=== PATIENT | female | born 1965 | race African-American/Black ===

== ENCOUNTER 2016-10-08 18:19 | Emergency (ER) | payer OTHER ==
[2016-10-08 17:20] LABS: URINE SOURCE CLEAN CATCH
[2016-10-08 17:52] LABS: URINE APPEARANCE CLOUDY; URINE BILIRUBIN NEG (NEG); URINE BLOOD 3+ (NEG); URINE COLOR YELLOW; URINE GLUCOSE NEG (NEG); URINE KETONE NEG (NEG); URINE LEUKOCYTE ESTERASE 2+ (NEG); URINE NITRATE NEG (NEG); URINE PH 5.5 (5-8); URINE PROTEIN 2+ (NEG); URINE SPECIFIC GRAVITY 1.026 (1.003-1.035); URINE UROBILINOGEN 0.2 MG/DL (NEG)
[2016-10-08 17:55] LABS: CULTURE INDICATED? YES; URBCS1 AUWI INNUM /[HPF] (0-2); URINE BACTERIA AUWI 2+ (NEGATIVE); URINE SQUAMOUS EPITHELIAL CELL MOD /[HPF]; UWBCS1 AUWI 100-200 (0-5)
[~2016-10-08 18:19] MED LIST: ACETAMINOPHEN-1 EACH PO; ASPIRIN EC81 M1 PO; BACTRIM DS TABL1 TA1 PO; HYDROCODON-ACE1 EAC7 PO; KEFLEX500 MG PO; NAPROXEN PO; PERCOCET 7.5-31 EACH PO
[2016-10-10 23:03] LABS: CHLAMYDIA TRACH Not Detected (Not Detected); N GONOR Not Detected (Not Detected)
[2016-12-06] MEDS ORDERED: IRON PO (14:20)
[2017-01-30] MEDS ORDERED: FERRO-TIME325 MG PO (13:10)
[2017-01-30] MEDS ORDERED: MOTRIN600 M1 PO (13:11)
[2017-01-30] MEDS ORDERED: HYDROCODON-ACE1 EAC7 PO (13:12)
== END 2016-10-08 19:24 | disposition home or self-care (01) ==
LOC: CED 18:19
PROVIDERS: Emergency Medicine; Nurse Practitioner
DX: A59.03 Trichomonal cystitis and urethritis (principal); Z98.51 Tubal ligation status; Z79.82 Long term (current) use of aspirin; Z79.899 Other long term (current) drug therapy
CPT/HCPCS: 81003; 87086; 87088; 87186; 87491; 87591; 87808; 87905; 96372; 99284; J0696

== ENCOUNTER 2016-11-01 14:42 | Emergency (ER) | payer OTHER ==
--- NOTE | ~2016-11-01 | CR172 ---
[facility] A Service of [facility] & [facility] RADIOLOGY TEXT RESULTS PATIENT: GORAN CUNNINGHAM LOCATION: [facility] : 69 UNIT #: [id number] AGE: [address]: Uyen Dailey SEX: F ORDER DR: [id number] [facility] [address] [place], [place] [address] [id number] E MR#: [id number] Acc #: [id number] NAME: GORAN CUNNINGHAM : 1965 SEX: F STUDY DATE/TIME: 11/01/2016 15:33 UNIT: [facility] ROOM: STUDY DESCRIPTION: CR Knee 3 Views Lt Attending Physician: Uyen Dailey P.A.-C. Ordering Physician: Uyen Dailey P.A.-C. [facility] MEDICAL IMAGING REPORT This report is preliminary unless electronic signature is present EXAM Left knee series. DATE OF EXAM 11/01/2016 HISTORY Trauma medial lateral knee pain, pain x1-1/2 week. Knee injury. Hit knee on table 2-1/2 weeks. FINDINGS AP, lateral, sunrise views left knee are presented. No traumatic fracture or malalignment. Joint spaces are intact. No soft tissue defect, subcutaneous air or radiodense foreign body. No definite joint effusion. The patient has ongoing symptoms, knee could be further evaluated with elective MRI if patient is a candidate. Dictated by... Gary Farias M.D. THIS IS AN ELECTRONICALLY VERIFIED REPORT Gary Farias M.D. at 11/02/2016 11:32 PM PRANAV/kassandra TD: 11/01/2016 23:01 JOB #: [id number] MEDICAL IMAGING REPORT Page 1 of 1 COPY
[2016-12-06] MEDS ORDERED: IRON PO (14:20)
[2017-01-30] MEDS ORDERED: FERRO-TIME325 MG PO (13:10)
[2017-01-30] MEDS ORDERED: MOTRIN600 M1 PO (13:11)
[2017-01-30] MEDS ORDERED: HYDROCODON-ACE1 EAC7 PO (13:12)
== END 2016-11-01 16:30 | disposition home or self-care (01) ==
LOC: CFTX 14:42 → CED 14:42 → CFTX 15:11
DX: S83.92XA Sprain of unspecified site of left knee, initial encounter (principal); D64.9 Anemia, unspecified; W22.8XXA Striking against or struck by other objects, initial encounter; Y92.009 Unspecified place in unspecified non-institutional (private) residence as the place of occurrence of the external cause
CPT/HCPCS: 29530; 73562; 99283

== ENCOUNTER 2016-11-07 12:34 | Emergency (ER) | payer OTHER ==
--- NOTE | ~2016-11-07 | CT2 ---
[facility] A Service of [facility] RADIOLOGY TEXT RESULTS PATIENT: GORAN CUNNINGHAM LOCATION: [facility] : [birth year] UNIT #: [id number] AGE: [address]: Adriano Worley MD SEX: F ORDER DR: [id number] [facility] [address] [place], [place] [address] [id number] E MR#: [id number] Acc #: [id number] NAME: GORAN CUNNINGHAM : 1965 SEX: F STUDY DATE/TIME: 11/07/2016 16:37 UNIT: [facility] ROOM: STUDY DESCRIPTION: CT Abd and Pelv W Cont Attending Physician: Balwinder Worley M.D. Referring Physician: Deshawn Alberto M.D. Ordering Physician: Alvarez Gusman M.D. [facility] MED[facility] IMAGING REPORT This report is preliminary unless electronic signature is present EXAM CT of abdomen and pelvis with contrast. INDICATIONS Nausea, vomiting, generalized abdominal and rectal pain for the past [address] of the abdomen and pelvis. COMPARISON None. TECHNIQUE This CT exam was performed with one or more of the following radiation dose reduction techniques: automatic exposure control, adjustment of mA and/or kV according to patient size, and iterative reconstruction. FINDINGS ABDOMEN WITH CONTRAST: 6 mm subpleural nodule left lower lobe. No liver lesion. There are a few small low-attenuation lesions in the spleen measuring up to 10 mm. The kidneys, adrenal glands, pancreas and gallbladder are unremarkable. Bowel loops are nondilated. Appendix is normal. 2.2 cm fat-containing umbilical hernia. PELVIS WITH CONTRAST: Uterus is markedly enlarged with scattered fibroids. A fibroid in the anterior lower uterine segment measures approximately 3.6 cm. There is a large exophytic mass in the left lower abdomen measuring up to 9.4 cm. This may be exophytic from the uterus. There is no pelvic fluid. No aggressive appearing bone lesion. IMPRESSION No acute findings. [facility] A Service of [facility] RADIOLOGY TEXT RESULTS PATIENT: GORAN CUNNINGHAM [id number] : [birth year] UNIT #: [id number] AGE: [address]: Adriano Worley MD SEX: F ORDER DR: Enlarged uterus with at least some fibroids. This all could be related to uterine fibroids or could be a combination of fibroids and uterine adenomyosis. There is also a large 9.4 cm mass in the left lower abdomen that may be exophytic from the uterus, representing a large exophytic fibroid. It is difficult to exclude an adnexal mass. Consider evaluation of pelvic structures with ultrasound. This could be performed on a nonemergent basis. There are a few low-attenuation lesions in the spleen that are nonspecific. Considerations include cysts, hemangiomas, granulomatous disease. Possibility of metastatic disease is not excluded, but is considered less likely, given there are no other findings to suggest that on the study. Dictated by... Balwinder Arcos M.D. THIS IS AN ELECTRONICALLY VERIFIED REPORT Balwinder Arcos M.D. at 11/08/2016 10:38 AM CY/kassandra TD: 11/07/2016 18:22 JOB #: [id number] MEDICAL IMAGING REPORT Page 1 of 1 COPY
[2016-11-07 14:37] LABS: URINE SOURCE CLEAN CATCH
[2016-11-07 14:50] LABS: URINE APPEARANCE CLEAR; URINE BILIRUBIN NEG (NEG); URINE BLOOD TRACE (NEG); URINE COLOR YELLOW; URINE GLUCOSE NEG (NEG); URINE KETONE NEG (NEG); URINE LEUKOCYTE ESTERASE NEG (NEG); URINE NITRATE NEG (NEG); URINE PROTEIN NEG (NEG); URINE SPECIFIC GRAVITY 1.025 (1.003-1.035)
[2016-11-07 14:53] LABS: CULTURE INDICATED? NO; URBCS1 AUWI 0-2 /[HPF] (0-2); URINE BACTERIA AUWI NEG (NEGATIVE); URINE SQUAMOUS EPITHELIAL CELL OCC /[HPF]
[2016-11-07 14:57] LABS: BASOPHIL% 0.7 % (0-2.5); DIFF IND YES; EOSINOPHIL# 0.1 X10e3 (0-0.7); HEMOGLOBIN 9.4 gm/dL (12.0-16.0); LYMPHOCYTE# 1.8 X10e3 (1.0-3.5); LYMPHOCYTE% 26.6 % (17.0-45.0); MEAN CELL VOLUME 73.4 FL (83-96); MEAN CORPUSCULAR HEMOGLOBIN 22.4 PG (28-34); MEAN CORPUSCULAR HGB CONC 30.5 g/dL (30-36); MEAN PLATELET VOLUME 8.6 FL (6.5-11.5); MONOCYTE# 0.5 X10e3 (0-1.0); MONOCYTE% 6.8 % (3.0-12.0); NEUTROPHIL# 4.3 X10e3 (1.5-7.1); NEUTROPHIL% 63.9 % (40-75); PLATELET COUNT 307 X10e3 (140-420); RED BLOOD COUNT 4.22 X10e (3.90-5.30); RED CELL DISTRIBUTION WIDTH 25.7 % (11.0-15.5); WHITE BLOOD COUNT 6.8 X10e3 (4.0-10.5)
[2016-11-07 15:15] LABS: ALKALINE PHOSPHATASE 59 U/L (32-92); ALT (SGPT) 18 U/L (10-40); AST (SGOT) 19 U/L (10-42); BILIRUBIN,TOTAL 0.4 mg/dL (0.2-2.0); BLOOD UREA NITROGEN 11 mg/dL (9-23); BUN/CREATININE RATIO 15.71; CALCIUM SERUM 9.3 mg/dL (8.4-10.2); CARBON DIOXIDE 22 mmol/L (22-31); CHLORIDE 106 mmol/L (100-111); CREATININE SERUM 0.7 mg/dL (0.6-1.4); GLOM FILT RATE Estimated 117.9 mL/min (>60); GLUCOSE FASTING 97 mg/dL (70-110); LIPASE 30 U/L (22-51); POTASSIUM 3.6 mmol/L (3.5-5.1); PROTEIN TOTAL SERUM 7.2 g/dL (6.0-8.3); SODIUM 136 mmol/L (135-145)
[2016-11-07 15:17] LABS: BILIRUBIN, DIRECT <0.1 mg/dL (0.0-0.2); BILIRUBIN,INDIRECT 0.3 mg/dL (0.0-0.9)
[2016-11-07 15:20] LABS: ANISOCYTOSIS MOD; HYPOCHROMIA MOD; MICROCYTOSIS SL; PLATELET ESTIMATE NORMAL (NORMAL)
[2016-12-06] MEDS ORDERED: IRON PO (14:20)
[2017-01-30] MEDS ORDERED: FERRO-TIME325 MG PO (13:10)
[2017-01-30] MEDS ORDERED: MOTRIN600 M1 PO (13:11)
[2017-01-30] MEDS ORDERED: HYDROCODON-ACE1 EAC7 PO (13:12)
== END 2016-11-07 17:51 | disposition home or self-care (01) ==
LOC: CFTX 12:34 → CED 12:34
DX: D25.9 Leiomyoma of uterus, unspecified (principal); K64.9 Unspecified hemorrhoids
CPT/HCPCS: 36415; 74177; 80048; 80076; 81003; 83690; 84703; 85025; 99284; Q9967

== ENCOUNTER → 2016-12-06 | Day surgery (SDC) | payer OTHER ==
[~2016-12-06] MED LIST changes: +FERRO-TIME325 MG PO; +IRON PO; +MOTRIN600 M1 PO
--- NOTE | ~2016-12-06 | OR ---
Unit #: [id number] #: [id number] Patient: GORAN CUNNINGHAM [id number] [address] [place], [place] [address] [id number] O MR#: [id number] NAME: GORAN CUNNINGHAM ROOM: Date of Procedure: 12/06/2016 Admission Date: 12/06/2016 Surgeon: Ruiz Snow Jr., M.D. : 1965 Attending Physician: Ruiz Snow Jr., M.D. Primary Care Physician: [facility] OPERATIVE REPORT INDICATIONS FOR PROCEDURE The patient is a 51-year-old black female, who recently presented to the office complaining of some anemia with evidence of some intermittent rectal bleeding. She is brought in this time for upper and lower endoscopy to determine the source of her GI bleed. PREOPERATIVE DIAGNOSES Gastrointestinal bleeding with anemia. POSTOPERATIVE DIAGNOSES Gastrointestinal bleeding with anemia. On upper endoscopy, she was noted to have evidence of 1+ distal esophagitis. No evidence of any stenosis. Mild atrophic gastritis with a small healing antral ulcer by appearance and she was also noted to have mild duodenitis. On colonoscopy to the distal ileum, she was noted to have evidence of bleeding internal hemorrhoids. These were actively bleeding. ANESTHESIA MAC anesthesia. PROCEDURES PERFORMED Flexible fiberoptic esophagogastroduodenoscopy with antral biopsy for Helicobacter pylori and flexible colonoscopy to the distal ileum. DESCRIPTION OF PROCEDURE The patient was positioned in Levy position with left side down. After being given MAC anesthesia, the Olympus XQ scope was passed through the proximal esophagus. The entire esophagus was examined. There was no evidence of any esophagitis except in the area of the GE junction, where there was 2 or 3 small ulcerations compatible with 1+ ulcerative distal esophagitis. No evidence of any stenosis. The scope was advanced through the GE junction, the cardia, and down to the fundic and antral region of the stomach, retroflexed back up to the area of the cardia, there was no obvious hiatal hernia present. The stomach distended well without evidence of rigidity. No evidence of any gastric ulcer disease except in the area of the antrum, there was a tiny 2 mm erosion versus ulcer that was healing. There was also some mild atrophic gastritis. The scope was advanced through the pylorus into the duodenal bulb, where there was some mild duodenitis. The scope was then advanced down to the second portion of the duodenum, which appeared normal. The scope was brought back up the area of the antrum where a biopsy was taken for Helicobacter pylori without significant bleeding. The scope was then slowly removed. The Unit #: [id number] #: [id number] Patient: GORAN CUNNINGHAM patient was repositioned for colonoscopy. Digital rectal examination was performed, which revealed no palpable mass or tenderness. No stool present, but there was some bright red blood. The Olympus colonoscope was advanced through the anal canal up the rectum and retroflexed down to the area of the anorectal region. The patient was noted to have dilated bleeding internal hemorrhoids. These were not massively bleeding though. The scope was then straightened and advanced up the rectosigmoid, in the sigmoid and descending colon areas, around the splenic flexure and the transverse colon, around hepatic flexure and ascending colon, down in the area of the cecum. The light from tip of the scope could be seen transilluminating through right lower quadrant abdominal wall area. The scope was advanced up the distal ileum approximately 10 to 12 inches. There was no evidence of any ileitis or inflammatory bowel disease. There was a small intramural lipoma in the area of the ascending colon felt to be of no major significance. The scope was slowly removed. The patient tolerated the procedure well and discharged in satisfactory condition. Dictated by... Ruiz Snow Jr., MJuliet ROWE/catrina TD: 12/07/2016 05:55 JOB #: [id number] OPERATIVE REPORT Page 1 of 1 X Ruiz Snow MD X PROCEDURE OPERATIVE NOTE
== END | disposition home or self-care (01) ==
LOC: COPS 11:49
DX: K29.41 Chronic atrophic gastritis with bleeding (principal); D50.0 Iron deficiency anemia secondary to blood loss (chronic); K29.81 Duodenitis with bleeding; K22.11 Ulcer of esophagus with bleeding; D17.5 Benign lipomatous neoplasm of intra-abdominal organs; K64.8 Other hemorrhoids; K21.9 Gastro-esophageal reflux disease without esophagitis; E66.9 Obesity, unspecified; Z68.29 Body mass index [BMI] 29.0-29.9, adult; Z98.51 Tubal ligation status; Z98.890 Other specified postprocedural states
CPT/HCPCS: 84703; 87077; J2250

== ENCOUNTER → 2017-01-02 | Outpatient (CLI) | payer OTHER ==
--- NOTE | ~2017-01-02 | MR103 ---
[facility] A Service of [facility] & [facility] RADIOLOGY TEXT RESULTS PATIENT: GORAN CUNNINGHAM LOCATION: [facility] : 69 UNIT #: [id number] AGE: [address]: Shashi Bai MD SEX: F ORDER DR: [id number] [facility] [address] [place], [place] [address] [id number] O MR#: [id number] Acc #: [id number] NAME: GORAN CUNNINGHAM. : 1965 SEX: F STUDY DATE/TIME: 01/02/2017 16:56 UNIT: [facility] ROOM: STUDY DESCRIPTION: MR Knee Wo Contrast Lt Attending Physician: Shashi aBi M.D. Referring Physician: Jaylon Lr M.D. Ordering Physician: Shashi Bai M.D. Primary Care Physician: Jaylon Lr M.D. MRI CENTER REPORT This report is preliminary unless electronic signature is present. EXAM MRI left knee, 01/02/2017. COMPARISON Left knee radiographs, 11/01/2016. HISTORY Order states knee medial meniscus tear/pain. History sheet states left knee pain. Hit against something 1 1/2 months ago. Anteromedial pain. No previous left knee surgery. Opposite right knee ACL surgery.. FINDINGS There is a gqzx-xx-zkjlzjao effusion without a popliteal cyst. Patellofemoral alignment is normal. 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 The femoral trochlea demonstrates a small focus of moderate-grade chondromalacia of the inferior aspect of the medial femoral trochlear facet. The quadriceps and patellar tendons are intact. Cruciate ligaments are normal. The lateral meniscus, lateral collateral ligament complex, and popliteus tendon are normal. Articular cartilage of the lateral compartment is normal. There is deep, likely full-thickness radial tear in the far posterior horn of the medial meniscus near the root insertion. The root is at least partially attached. There is secondary medial meniscal subluxation. The MCL is intact. There is no displaced meniscal fragment. There is medial compartment arthrosis with joint space narrowing and moderate and high-grade weightbearing chondromalacia predominating in the STS. [facility] A Service of [facility] & [facility] RADIOLOGY TEXT RESULTS PATIENT: GORAN CUNNINGHAM LOCATION: [facility] : [birth year] UNIT #: [id number] AGE: [address]: Shashi Bai MD SEX: F ORDER DR: medial femur. There is minor marrow edema of the periphery of the subarticular medial tibia at the level of the mid body of the medial meniscus. There is no marrow lesion, fracture, or sizeable loose body. IMPRESSION 1. The predominant abnormalities involve the medial compartment where there is ttbf-qq-lumoornz arthrosis and a deep essentially full-thickness radial tear in the posterior horn of the medial meniscus near the root without complete root detachment. Mild reactive MCL bursitis. 2. Joint effusion. 3. Patellofemoral compartment limited chondromalacia detailed above. 4. Cruciate ligaments and lateral compartment are normal. 5. There is no fracture or loose body. Dictated by... Tiarra Royal M.D. THIS IS AN ELECTRONICALLY VERIFIED REPORT Tiarra Royal M.D. at 01/04/2017 8:53 AM COLEMAN/shailesh TD: 01/03/2017 14:34 JOB #: [id number] MRI CENTER REPORT Page 1 of 1 COPY
== END | disposition home or self-care (01) ==
LOC: CMRI 16:32
DX: M25.562 Pain in left knee (principal); M17.12 Unilateral primary osteoarthritis, left knee; S83.242A Other tear of medial meniscus, current injury, left knee, initial encounter; M70.52 Other bursitis of knee, left knee
CPT/HCPCS: 73721

== ENCOUNTER → 2017-01-30 | Outpatient (CLI) | payer OTHER ==
--- NOTE | ~2017-01-30 | EKG ---
PATIENT: GORAN CUNNINGHAM UNIT #: [id number] Ventricular Rate: 65 BPM Atrial Rate: 65 BPM P-R Interval: 196 ms QRS Duration: 74 ms Q-T Interval: 426 ms QTC Calculation(Bezet): 443 ms P [place]: 42 degrees Calculated R [place]: 35 degrees Calculated T [place]: 27 degrees Diagnosis Line: Normal sinus rhythm Diagnosis Line: Nonspecific T wave abnormality Diagnosis Line: Borderline ECG Diagnosis Line: No previous ECGs available Diagnosis Line: Confirmed by FAYE LEMA MD ([id number]) on 01/31/2017 Diagnosis Line: 7:07:52 PM INTERPRETING MD: TOREY SARAH
[2017-01-30 12:42] LABS: HEMATOCRIT 38.6 % (35.0-45.0); HEMOGLOBIN 12.3 gm/dL (12.0-16.0); MEAN CELL VOLUME 85.7 FL (83-96); MEAN CORPUSCULAR HEMOGLOBIN 27.3 PG (28-34); MEAN CORPUSCULAR HGB CONC 31.8 g/dL (30-36); MEAN PLATELET VOLUME 8.6 FL (6.5-11.5); RED BLOOD COUNT 4.51 X10e (3.90-5.30); RED CELL DISTRIBUTION WIDTH 21.3 % (11.0-15.5); WHITE BLOOD COUNT 4.7 X10e3 (4.0-10.5)
[2017-01-30 13:24] LABS: BUN/CREATININE RATIO 15.71; CALCIUM SERUM 9.4 mg/dL (8.4-10.2); CREATININE SERUM 0.7 mg/dL (0.6-1.4); GLOM FILT RATE Estimated 117.9 mL/min (>60); POTASSIUM 4.3 mmol/L (3.5-5.1)
== END | disposition home or self-care (01) ==
LOC: CAMB 12:19
PROVIDERS: Orthopaedic Surgery
DX: Z01.818 Encounter for other preprocedural examination (principal)
CPT/HCPCS: 36415; 80048; 85027; 93005

== ENCOUNTER → 2017-02-07 | Day surgery (SDC) | payer OTHER ==
--- NOTE | ~2017-02-07 | OR ---
Unit #: [id number] #: [id number] Patient: GORAN CUNNINGHAM [id number] [address] [address] [id number] O MR#: [id number] NAME: GORAN CUNNINGHAM ROOM: Date of Procedure: 02/07/2017 Admission Date: 02/07/2017 Surgeon: Shashi Bai M.D. : 1965 Attending Physician: Shashi Bai M.D. Primary Care Physician: Jaylon Lr M.D. OPERATIVE REPORT PREOPERATIVE DIAGNOSES 1. Left knee medial meniscal tear. 2. Left knee synovitis with synovial proliferation. PROCEDURE PERFORMED 1. Left knee arthroscopic partial medial meniscectomy. 2. Left knee arthroscopic limited synovectomy. LINKER UP None. ANESTHESIA General with LMA. COMPLICATIONS None. SPECIMENS None. DRAINS None. SURGICAL IMPLANTS None. INDICATION FOR PROCEDURE Goran is a 51-year-old female, patient of mine, who has had persistent left medial-sided knee pain and swelling. She failed to respond to conservative treatment including therapy, exercises, and anti-inflammatories, and cortisone injection. MRI revealed synovitis with medial meniscal tear. Risks, benefits, and alternatives were discussed with the patient. She elected surgical intervention. Discussed with her that she does have some arthritis and may not take care of the pain regarding this. She wished to proceed with surgery. Risks include but not limited to infection, bleeding, nerve injury, blood clots, risks associated with anesthesia, need for further surgery, persistent pain, and possibly . DESCRIPTION OF PROCEDURE On 02/07/2017, the patient was seen in the preoperative holding area, where her surgical site was marked. Preoperative antibiotics were Unit #: [id number] #: [id number] Patient: GORAN CUNNINGHAM received. H and P and consent updated. She was taken to the operating room and provided general anesthesia. Left thigh high tourniquet placed. Left lower extremity was prepped and draped in typical sterile fashion. Time-out performed confirming the correct surgical site and procedure. At this point, the leg was exsanguinated and tourniquet inflated to 250 mmHg. Standard anterolateral portal created with an 11-blade. A blunt trocar carefully inserted into the knee joint. Full inventory of the knee performed. Significant synovitis of the suprapatellar region and medial compartment noted. Large effusion noted. Medial meniscal tear along the body and posterior radial tear noted. There was a grade 2 and 3 changes to the medial compartment. ACL intact. Lateral compartment normal. Anteromedial portal created with an 18-gauge needle for guidance. Debridement of the medial meniscus performed with an arthroscopic shaver and biter to trim back the torn portion to a stable base. The radial tear was not repairable. Once the meniscectomy was complete, focus was placed on the synovectomy. A 90-degree ArthroCare wand was introduced into the knee. This was started in the suprapatellar pouch. A thorough cauterization with debridement of the synovitis performed to aide and reduction of swelling. This was also taken down through the medial compartment to the notch. Once this was complete, all instruments were removed. Tourniquet released. Hemostasis achieved. Two portal wounds closed with 3-0 nylon suture. Approximately 15 mL of Marcaine 0.5% without epinephrine was injected in the knee. Xeroform, 4x4s, ABD pad, cast padding, Ted bandage were placed. The patient was subsequently awakened from general anesthesia in stable condition and taken to the PACU postoperatively. POSTOPERATIVE PLAN The patient will be discharged home. She will follow up in the office in 7 to 10 days. She will be weightbearing as tolerated. No complications encountered during the surgical procedure. Dictated by... Shashi Bai M.D. DESIRE/catrina TD: 02/08/2017 05:22 JOB #: [id number] OPERATIVE REPORT Page 1 of 1 X X PROCEDURE OPERATIVE NOTE
== END | disposition home or self-care (01) ==
LOC: CSUR 05:17
DX: M23.204 Derangement of unspecified medial meniscus due to old tear or injury, left knee (principal); M65.862 Other synovitis and tenosynovitis, left lower leg; K21.9 Gastro-esophageal reflux disease without esophagitis; Z98.51 Tubal ligation status; Z98.890 Other specified postprocedural states; Z79.899 Other long term (current) drug therapy
CPT/HCPCS: 84703; J0690; J2250; J2405; J3010